=== PATIENT | female | born 1955 | race Caucasian/White ===

== ENCOUNTER → 2019-01-12 | Outpatient (CLI) | payer OTHER ==
[~2019-01-12] MED LIST: GADOBUTROL 10 ML VIAL IVP ONE
== END ==
LOC: FIMAGING 15:30
PROVIDERS: ATTEND Internal Medicine
DX: H91.90 Unspecified hearing loss, unspecified ear (principal); H93.19 Tinnitus, unspecified ear; E55.9 Vitamin D deficiency, unspecified
CPT/HCPCS: A9585

== ENCOUNTER 2019-01-28 13:34 | Emergency (ER) | payer OTHER ==
--- NOTE | 2019-01-28 14:12 | EDPHY ---
General - History Smoking Status: Never smoked Time Seen by Provider: 01/28/19 14:11 Narrative: CLINICAL IMPRESSION: UTI ASSESSMENT/PLAN: Patient is a 63-year-old female with a history of hypothyroidism who presents with dysuria and increased frequency. Her abdomen is soft I am unable to elicit any tenderness to palpation, no peritoneal signs and no evidence of a surgical abdomen. She had no complaints of flank tenderness on arrival, no CVA tenderness bilaterally on exam. Urinalysis revealed nitrate positive, 3+ leuks, 50-180 WBCs and 4+ bacteria. History and physical examination is most consistent with urinary tract infection. Her urine was sent for culture. Her vital signs were reviewed, no findings to suggest sepsis, systemic illness, pyelonephritis or obstructive uropathy. Will treat with Ceftin, urine sent for culture. She is well established with her PCP and will call for follow-up next week. Return precautions discussed. ED COURSE: 1419: Case and plan of care discussed with Dr. Tracy CHIEF COMPLAINT: Dysuria HPI: Patient is a 63-year-old female with a history of hypothyroidism who presents to the emergency department with complaints of dysuria, increased urinary frequency and decreased urinary output. Patient reports she was traveling home from a recent trip to [place] on Tuesday, Tuesday evening she had a sudden onset of burning with urination. Patient reports that her burning has been persistent , she has been experiencing increased frequency of urination with very little urine output. She does feel that she is emptying her bladder. She denies any fever, nausea, vomiting or abdominal pain. She has had no flank pain. She denies any chest pain or shortness of breath. Her appetite has been normal. Patient does have a history of urinary tract infection however she reports it has been a long time since she has had 1. She is well established with her primary care provider Dr. Consuelo Naylor. ROS: Otherwise negative, please see HPI. PHYSICAL EXAM: General Appearance: Well-developed, well-appearing and in no acute distress. Respiratory: There are no retractions, lungs are clear to auscultation. Cardiac: Regular rate and rhythm, no murmurs or gallops. Gastrointestinal: Patient's abdomen is soft, I am unable to elicit any tenderness to palpation on examination. No masses or hernias appreciated, no rigidity, guarding or focal peritoneal findings. No CVA tenderness bilaterally. Skin: Warm, dry, no rashes. Neuro: Alert and oriented x3, Cranial nerves 2-12 grossly intact. No focal deficit. Psych: Normal mood, normal affect. No agitation. MEDICAL DECISION MAKING: Patient was seen independently. Secondary supervising physician at time of evaluation was Dr. Tracy, he did not evaluate this patient. Diagnosis: Urinary tract infection. Summary: See Assessment and Plan for summary of ED visit Clinical lab tests: ordered / reviewed. Decision to obtain medical records or history from someone other than the patient: No Review / Summarize previous medical records: Yes Discussed patient with another provider: Yes, Dr. Tracy Patient Progress: Stable, discharged. (Padmini Monroe) Medical Decision Making: I did not see this patient while she was in the emergency department. However her care was discussed with the PA while the patient was in the department. I agree with treatment plan and management (Sandro Tracy) - Objective Vital Signs: Initial Vital Signs Temperature (C) 36.7 C 01/28/19 13:39 Heart Rate 81 01/28/19 13:39 Respiratory Rate 16 01/28/19 13:39 Blood Pressure 105/62 01/28/19 13:39 O2 Sat (%) 97 01/28/19 13:39 O2 Delivery Mode Room Air Allergies/Adverse Reactions: No Known Allergies Allergy (Unverified 01/28/19 13:38) Home Medications: Medication Instructions Recorded Cefuroxime Axetil [Ceftin (*)] 500 mg PO BID 7 Days tab 01/28/19 Levothyroxine 01/28/19 Microbiology Results: MICROBIOLOGY 01/28/19 12:30 Urine,Clean Catch Urine Culture - Preliminary Gram Neg Gonsalo Nonlactose Ferm. Medications Given: Discontinued Medications Cefuroxime Axetil (Ceftin) 500 mg PO ONCE ONE PRN Reason: Protocol Stop: 01/28/19 14:16 Last Admin: 01/28/19 15:13 Dose: 500 mg Phenazopyridine HCl (Pyridium) 200 mg PO EDNOW ONE Stop: 01/28/19 14:38 Last Admin: 01/28/19 14:41 Dose: 200 mg Departure - Departure Disposition: Home, Routine, Self-Care Clinical Impression: UTI (urinary tract infection) Condition: Good Instructions: Urinary Tract Infection in Women (ED) Additional Instructions: DISCHARGE INSTRUCTIONS FROM YOUR PROVIDER Thank you for visiting our emergency department today. Rest, push non-diuretic, non-caffeinated fluids, clear liquid diet, then a BRAT diet (bananas, rice, applesauce, toast), then slowly advance diet to normal. Attempt small frequent meals. Urinate regularly. Urinate after intercourse if sexually active. Ceftin antibiotic as prescribed every 12 hours. You received your first dose here today. Next dose in 12 hours. Consider over the counter probiotics to help prevent antibiotic associated diarrhea. As discussed, a urine culture is pending at the lab. Your antibiotic may need to be changed. If it does, you will be contacted in the next 3-5 days by phone. Be sure we have a working phone number. Schedule a follow-up appointment with your primary care physician in the next 1- 2 days for re-evaluation. Bring a copy of your test results with you to that appointment. Return for increased or unmanageable pain, development of abdominal pain, groin pain, pelvic pain, back pain, flank pain, fever, chills, recurrent vomiting, vomiting blood or coffee grounds, diarrhea, constipation, bloody stool, black tarry stools, burning or pain with urination, bloody urine, inability to urinate , decreased urine output or other signs of dehydration, development of fever, chills, dizziness, weakness, fainting, difficulty breathing or swallowing, chest pain, coughing, coughing up blood, ankle swelling, or for any other new, worsening or worrisome symptoms. People present with illnesses and injuries in different ways, and it is always possible that we have missed something. Again, thank you for choosing our emergency department. We hope that you feel better. Referrals: Consuelo Naylor MD [Primary Care Provider] - 2-3 days, call for appt. Prescriptions: Cefuroxime Axetil [Ceftin (*)] 500 mg PO BID 7 Days tab
[2019-01-28] MEDS ORDERED: CEFUROXIME AXETIL 250 MG TAB PO ONE (14:15)
[2019-01-28] MEDS ORDERED: PHENAZOPYRIDINE HCL 200 MG TAB PO ONE (14:37)
[2019-01-28 15:20] VITALS: BP 115/52
== END 2019-01-28 15:18 | disposition home or self-care (01) ==
DX: N39.0 Urinary tract infection, site not specified (principal); E03.9 Hypothyroidism, unspecified

== ENCOUNTER → 2019-01-30 | Outpatient (CLI) | payer OTHER | LOC: FIMAGING 10:17 | PROVIDERS: ATTEND Internal Medicine | DX: Z13.820 Encounter for screening for osteoporosis (principal); Z12.31 Encounter for screening mammogram for malignant neoplasm of breast; E55.9 Vitamin D deficiency, unspecified; H91.90 Unspecified hearing loss, unspecified ear; H93.19 Tinnitus, unspecified ear; R42 Dizziness and giddiness; Z78.0 Asymptomatic menopausal state; M85.80 Other specified disorders of bone density and structure, unspecified site ==